=== PATIENT | male | born 1965 | race Caucasian/White ===

== ENCOUNTER 2020-01-14 08:37 | Emergency (ER) | payer OTHER ==
[~2020-01-14] VITALS: Ht 165.1 cm; Wt 91.2 kg
[2020-01-14 08:43] VITALS: Ht 165.1 cm; Wt 91.2 kg
[2020-01-14 11:27] VITALS: BP 125/69
== END 2020-01-14 11:27 | disposition home or self-care (01) ==
LOC: ED 08:37
DX: S40.012A Contusion of left shoulder, initial encounter (principal); W20.8XXA Other cause of strike by thrown, projected or falling object, initial encounter; Y93.01 Activity, walking, marching and hiking; Y92.89 Other specified places as the place of occurrence of the external cause; Y99.8 Other external cause status
CPT/HCPCS: Q0092